=== PATIENT | female | born 1980 | race Caucasian/White ===

== ENCOUNTER 2017-03-13 08:41 | Emergency (ER) | payer MEDICAID ==
[~2017-03-13] VITALS: Ht 152.4 cm; Wt 76.5 kg
[2017-03-13 08:44] VITALS: Ht 152.4 cm; Wt 76.5 kg
[2017-03-13] MEDS ORDERED: HYDROCODONE/APAP (5/325) TAB PO ONE (10:00)
[2017-03-13 10:13] LABS: URINE BLOOD (Dip) POC Negative (NEGATIVE)
--- NOTE | 2017-03-13 10:32 | RADRPT ---
PROCEDURE: US Pelvis. CLINICAL INDICATION: Pelvic pain. TECHNIQUE: The pelvis was evaluated with transabdominal and transvaginal sonography in the axial a nd sagittal planes. COMPARISON: No prior study is available for comparison. FINDINGS: Uterus: 8.3 x 4.3 x 5.1 cm. Endometrium: 6.8 mm. Right ovary: 3.9 x 1.7 x 2.1 cm. Left ovary: 3.0 x 1.8 x 2.7 cm. Uterine masses: None. Ovarian masses: None. Color Doppler and pulsed Doppler sonography demonstrate normal flow to the ova samantha. Other pelvic masses: None. Free fluid: None. IMPRESSION: 1. Normal pelvic ultrasound. RPTAT: QQ .Golden Black MD, MD Date Time Electronically viewed and signed by .Golden Black MD, on 03/13/2017 10:32 .R/
[2017-03-13] MEDS ORDERED: NAPROXEN 500 MG TAB PO ONE (11:00)
[2017-03-13] MEDS ORDERED: HYDR-906 PO (11:03)
[2017-03-13] MEDS ORDERED: IBUP-1542 PO (11:03)
--- NOTE | 2017-03-13 11:17 | ERD ---
ER Documentation Chief Complaint Chief Complaint pt bib self with c/o pelvic pain x 3 wks, worse last night HPI This is a 37-year-old female presents to the ER complaining of right-sided pelvic pain that started 3 weeks ago. Patient had a similar pain 6 months ago, however it resolved. Patient did go see her [employer] and a pelvic examination was done with the Pap smear which was normal at that time. She states that pain is throbbing and" deep" in quality. Is nonradiating and is intermittent. Took ibuprofen last night which helps with the pain, however this morning she woke up with the same pain. Patient denies any vaginal discharge. She denies any urinary frequency or dysuria. Denies any other abdominal pain, flank pain, nausea vomiting or diarrhea. She denies any fever or chills. Patient denies falls, or hip pain. ROS 12 point review of systems was done, all negative except per HPI. Medications Home Meds Active Scripts Ibuprofen* (Motrin*) 600 Mg Tab, 600 MG PO Q6, #30 TAB Prov:JAJA MIRELES 03/13/17 Hydrocodone/Acetaminophen ([place]os[place] 5-325 Tablet) 1 Each Tablet, 1 TAB PO Q6H Y for PAIN, #20 TAB Prov:JAJA MIRELES 03/13/17 Allergies Allergies: Coded Allergies: No Known Allergy (Unverified , 03/13/17) PMhx/Soc Medical and Surgical Hx: pt denies Medical Hx, pt denies Surgical Hx Hx Alcohol Use: No Hx Substance Use: No Hx Tobacco Use: No Smoking Status: Never smoker Physical Exam Vitals Vital Signs Date Time Temp Pulse Resp B/P Pulse Ox O2 Delivery O2 Flow Rate FiO2 03/13/17 08:44 97.7 93 16 147/90 98 Physical Exam GENERAL: The patient is well developed and appropriate for usual state of health , in no apparent distress. HEENT: Atraumatic. CHEST: Clear to auscultation bilaterally. There are no rales, wheezes or rhonchi. HEART: Regular rate and rhythm. No murmurs, clicks, rubs or gallops. ABDOMEN: Soft, nontender and nondistended. Good bowel sounds. No rebound or guarding. No gross peritonitis. No gross organomegaly or masses. No Tovar sign or McBurney point tenderness. patient has pain to the right lower pelvic area. EXTREMITIES: Equal pulses bilaterally. There is no peripheral clubbing, cyanosis or edema. No focal swelling or erythema. Full range of motion. Grossly neurovascularly intact. Patient has full and nonpainful range of motion of the , hip is nontender to palpation. NEURO: Alert and oriented. SKIN: The skin is warm and dry. Results 24 hrs Laboratory Tests Test 03/13/17 10:12 Bedside Urine pH (LAB) 7.0 Bedside Urine Protein (LAB) Negative Bedside Urine Glucose (UA) Negative Bedside Urine Ketones (LAB) Negative Bedside Urine Blood Negative Bedside Urine Nitrite (LAB) Negative Bedside Urine Leukocyte Esterase (L Negative Current Medications Medications (Trade) Dose Ordered Sig/Nikita Route PRN Reason Start Time Stop Time Status Last Admin Dose Admin Acetaminophen/ Hydrocodone Bitart (Moselle (5/325)) 1 tab ONCE ONCE PO 03/13/17 10:00 03/13/17 10:01 DC Naproxen (Naprosyn) 500 mg ONCE ONCE PO 03/13/17 11:00 03/13/17 11:01 DC 03/13/17 10:48 Procedures/MDM This is a 37-year-old female presents to the ER with right lower pelvic pain. No abnormalities were found on pelvic ultrasound or urinalysis. Suspicion for acute abdomen is low patient has had this pain for the last 3 weeks is afebrile and extremely well-appearing. Does not complain of abdominal pain and her abdominal examination is benign. Sent for referred pain from the hip is low, patient denies any falls and she has full and nonpainful range of motion of her hip. She will be sent home with Moselle and ibuprofen. She is to follow-up with her primary care doctor within 1-2 days or return to ER sooner if symptoms worsen. My medical decision making shared with the patient she understands and agrees with plan. Departure Diagnosis: Primary Impression: Pelvic pain Condition: Stable Patient Instructions: Pelvic Pain, Unknown Cause Additional Instructions: Llame al doctor MAANA y brook vioelt RADHA PARA DENTRO DE 1-2 DAVIS.Dgale a la secretaria que nosotros le instruimos hacer esta radha.Avise o llame si jolley condicin se empeora antes de la radha. Regresa aqui si peor o no mejor. JAJA MIRELES Mar 13, 2017 11:17
== END 2017-03-13 11:18 | disposition home or self-care (01) ==
LOC: FTE 08:41
DX: R10.2 Pelvic and perineal pain (principal)
CPT/HCPCS: 76830; 76856; 81003; Z7502; Z7610

== ENCOUNTER 2017-05-31 21:57 | Emergency (ER) | END 2017-06-01 03:57 | disposition home or self-care (01) ==

== ENCOUNTER 2018-02-25 20:18 | Emergency (ER) | END 2018-02-25 23:36 | disposition home or self-care (01) ==

== ENCOUNTER 2018-08-15 11:30 | Emergency (ER) | payer MEDICAID ==
[~2018-08-15] VITALS: Ht 157.5 cm; Wt 77.1 kg
[~2018-08-15 11:30] MED LIST: DICY10CA40 PO; FAMO-96 PO; FLUC150T PO; HYDR-4011 PO; IBUP-1542 PO; MAG-19 PO; NAPR-985 PO; ONDA4TAB14 PO
[2018-08-15 11:56] VITALS: BP 136/85; PULSE 89; RESP 18; Ht 157.5 cm; Wt 77.1 kg
[2018-08-15] MEDS ORDERED: DICL100G37 TOP (14:19)
[2018-08-15] MEDS ORDERED: IBUP-1542 PO (14:19)
--- NOTE | 2018-08-15 14:41 | ERD ---
ER Documentation Chief Complaint Chief Complaint back pain x2 wks HPI 38-year-old female presenting with back pain times 2 weeks. Patient states is over her right flank. Her pain is worse with movement. Has normal urination bowel movement. Denies abdominal pain. Has not taken medications for pain. Denies any traumatic injuries. Medical history hypercholesterolemia. NKDA. Surgical history denies. Social history denies ROS All systems reviewed and are negative except as per history of present illness. Medications Home Meds Active Scripts Diclofenac Sodium* (Voltaren* Gel) 1% -100 Gm Gel, 2 GM TOP QID, #1 TUB Prov:JOANNE MUNOZ PA-C 08/15/18 Ibuprofen* (Motrin*) 600 Mg Tab, 600 MG PO Q6, #30 TAB Prov:JOANNE MUNOZ PA-C 08/15/18 Fluconazole* (Diflucan*) 150 Mg Tablet, 150 MG PO DAILY for 1 Day, TAB Prov:CHIJAJA TROTTER C 02/25/18 Naproxen* (Naprosyn*) 500 Mg Tablet, 500 MG PO BID PRN for PAIN AND/OR INFLAMMATION, #30 TAB Prov:JAJA MIRELES 02/25/18 Dicyclomine HCl (Dicyclomine HCl) 10 Mg Capsule, 20 MG PO QID, #20 CAP Prov:QUINTON FARR NP 06/01/17 Magaldrate/Simethicone* (Mylanta*) 355 Ml Susp, 30 ML PO QID PRN for GASTROINTESTINAL UPSET, #1 BOTTLE Prov:QUINTON FARR NP 06/01/17 Famotidine* (Pepcid*) 20 Mg Tablet, 20 MG PO BID, #20 TAB Prov:QUINTON FARR INSOLE TAPER 06/01/17 Ondansetron (Ondansetron Odt) 4 Mg Tab.rapdis, 4 MG PO Q6H PRN for NAUSEA AND/OR VOMITING, #20 TAB Prov:QUINTON FARR INSOLE TAPER 06/01/17 Hydrocodone/Acetaminophen ([place] 5-325 Tablet) 1 Each Tablet, 1 TAB PO Q6H PRN for SEVERE PAIN LEVEL 7-10, #20 TAB Prov:QUINTON FARR NP 06/01/17 Ibuprofen* (Motrin*) 600 Mg Tab, 600 MG PO Q6, #30 TAB Prov:JAJA MIRELES 03/13/17 Hydrocodone/Acetaminophen ([place] 5-325 Tablet) 1 Each Tablet, 1 TAB PO Q6H PRN for PAIN, #20 TAB Prov:JAJA MIRELES 03/13/17 Allergies Allergies: Coded Allergies: No Known Allergy (Unverified , 08/15/18) PMhx/Soc Medical and Surgical Hx: pt denies Medical Hx, pt denies Surgical Hx Hx Alcohol Use: No Hx Substance Use: No Hx Tobacco Use: No Smoking Status: Never smoker FmHx Family History: No diabetes, No coronary disease, No other Physical Exam Vitals Vital Signs Date Temp Pulse Resp B/P (MAP) Pulse Ox O2 O2 Flow FiO2 Time Delivery Rate 08/15/18 97.5 89 18 136/85 100 11:56 (102) Physical Exam GENERAL: The patient is well-appearing, well-nourished, in no acute distress CHEST: Clear to auscultation bilaterally. There are no rales, wheezes or rhonchi. HEART: Regular rate and rhythm. No murmurs, clicks, rubs or gallops. No S3 or S4. ABDOMEN:Soft, nontender and nondistended. Good bowel sounds. No rebound or guarding. No gross peritonitis. No gross organomegaly or masses. No Tovar sign or McBurney point tenderness. BACK: No midline tenderness. Mild tenderness palpation over the right posterior flank. No CVA tenderness SKIN: There is no apparent rash or petechiae. The skin is warm and dry. Results 24 hrs Laboratory Tests Test 08/15/18 12:43 08/15/18 12:45 Bedside Urine pH (LAB) 6.0 Bedside Urine Protein (LAB) Negative Bedside Urine Glucose (UA) Negative Bedside Urine Ketones (LAB) Negative Bedside Urine Blood 2+ Bedside Urine Nitrite (LAB) Negative Bedside Urine Leukocyte Esterase (L Negative POC Beta HCG, Qualitative NEGATIVE Procedures/MDM DIAGNOSTIC IMAGING REPORT Patient: PINA HAZEL : 1980 Age: 38 Sex: F MR #: [id number] DOS: 08/15/18 1222 Ordering MD: LORELEI MUNOZ PA-C Location: [facility] Room/Bed: PROCEDURE: Retroperitoneal US. CLINICAL INDICATION: Flank pain TECHNIQUE: Multiple sonographic images of the kidneys and retroperitoneum were obtained. The images were reviewed on a PACS workstation. COMPARISON: US ABDOMEN 06/01/2017 FINDINGS: The kidneys are normal in size, contour, cortical thickness and cortical echogenicity. The right kidney measures 9.2 cm. The left kidney measures 9.8 cm. No kidney stones are visualized. There is no evidence for hydronephrosis. The urinary bladder is normal. RPTAT: AA IMPRESSION: Unremarkable retroperitoneal ultrasound. MDM: 38-year-old female presenting with right flank pain. Urine is negative for blood and infection. I have low suspicion for pyelonephritis. Patient does not have CVA tenderness on exam. Patient's kidney ultrasound within normal limits. Patient abdominal exam is non-concerning. I have low suspicion for abdominal abnormality radiating to the back. I have low suspicion for bony injury. I have low suspicion for pulmonary abnormality. She has worsening pain with rotational movements is likely associated with musculoskeletal strain. Patient is told if symptoms change or worsen to return to ER immediately. All questions answered at discharge Departure Diagnosis: Primary Impression: Back pain Condition: Stable Patient Instructions: Back Pain (Acute Or Chronic) Referrals: COMMUNITY CLINICS YOU HAVE RECEIVED A MEDICAL SCREENING EXAM AND THE RESULTS INDICATE THAT YOU DO NOT HAVE A CONDITION THAT REQUIRES URGENT TREATMENT IN THE EMERGENCY DEPARTMENT. FURTHER EVALUATION AND TREATMENT OF YOUR CONDITION CAN WAIT UNTIL YOU ARE SEEN IN YOUR DOCTORS OFFICE WITHIN THE NEXT 1-2 DAYS. IT IS YOUR RESPONSIBILITY TO MAKE AN APPOINTMENT FOR FOLOW-UP CARE. IF YOU HAVE A PRIMARY DOCTOR --you should call your primary doctor and schedule an appointment IF YOU DO NOT HAVE A PRIMARY DOCTOR YOU CAN CALL OUR PHYSICIAN REFERRAL HOTLINE AT IF YOU CAN NOT AFFORD TO SEE A PHYSICIAN YOU CAN CHOSE FROM THE FOLLOWING [facility] [address] [facility] [address] [facility] [address] [facility] [address] [facility] [address] [facility]. [facility]. [address] Additional Instructions: FOLLOW UP WITH YOUR PRIMARY CARE PHYSICIAN TOMORROW.Return to this facility if you are not improving as expected. JOANNE MUNOZ PA-C Aug 15, 2018 14:41
== END 2018-08-15 14:39 | disposition home or self-care (01) ==
LOC: FTE 11:30
DX: M54.9 Dorsalgia, unspecified (principal); R10.9 Unspecified abdominal pain
CPT/HCPCS: 76775; 81003; 81025; Z7502